=== PATIENT | male | born 1935 | race Caucasian/White ===

== ENCOUNTER 2017-05-23 10:57 | Inpatient (IN) | payer MEDICARE, OTHER ==
[2017-05-23] MEDS: FUROSEMIDE 40 MG INJ IV (11:38)
[2017-05-23] MEDS: ASPIRIN 325 MG TAB PO (11:38)
[2017-05-23] MEDS: NITROGLYCERIN 2% 1 GM OINT PKT TD (11:38)
[2017-05-23 11:52] LABS: ADD MAN DIFF? NO
[2017-05-23 11:53] LABS: BASOPHILS % 0.6 % (0.0-2.0); EOSINOPHILS # 0.3 10^3/ul (0.0-0.5); EOSINOPHILS % 4.5 % (0.0-7.0); HEMATOCRIT 32.7 % (42.0-52.0); HEMOGLOBIN 10.8 g/dl (14.0-18.0); LYMPHOCYTES # 1.1 10^3/ul (0.8-2.9); LYMPHOCYTES % 17.8 % (15.0-51.0); MEAN CORPUSCULAR HEMOGLOBIN 32.6 pg (29.0-33.0); MEAN CORPUSCULAR VOLUME 98.8 fl (82.0-101.0); MEAN PLATELET VOLUME 11.7 fl (7.4-10.4); MONOCYTE # 0.6 10^3/ul (0.3-0.9); MONOCYTES % 9.9 % (0.0-11.0); NEUTROPHIL # 4.1 10^3/ul (1.6-7.5); NEUTROPHILS % 66.9 % (39.0-77.0); PLATELET COUNT 101 10^3/UL (140-415); RED BLOOD COUNT 3.31 10^6/ul (4.70-6.10); RED CELL DISTRIBUTION WIDTH 14.4 % (11.5-14.5)
[2017-05-23 11:53] LABS: WHITE BLOOD COUNT 6.2 10^3/ul (4.8-10.8)
[2017-05-23 12:13] LABS: INR 1.65; PROTIME 19.9 Sec (11.9-14.9); PT RATIO 1.6
[2017-05-23 12:14] LABS: ALANINE AMINOTRANSFERASE 38 IU/L (13-69); ALBUMIN 3.4 g/dl (3.3-4.9); ALBUMIN/GLOBULIN RATIO 1.17; ALKALINE PHOSPHATASE 73 IU/L (42-121); ANION GAP 13 (8-16); ASPARTATE AMINO TRANSFERASE 30 IU/L (15-46); BLOOD UREA NITROGEN 20 mg/dl (7-20); CALCIUM 8.8 mg/dl (8.4-10.2); CARBON DIOXIDE 30 mmol/L (21-31); CHLORIDE 104 mmol/L (97-110); CREATININE 1.05 mg/dl (0.61-1.24); GLUCOSE 104 mg/dl (70-220); SODIUM 143 mmol/L (135-144); TOTAL PROTEIN 6.3 g/dl (6.1-8.1)
[2017-05-23 12:25] LABS: B-TYPE NATRIURETIC PEPTIDE 13000 PG/ML (0-450); TROPONIN-I 0.015 ng/ml (0.00-0.12)
[2017-05-23 12:32] LABS: PARTIAL THROMBOPLASTIN TIME 73.1 Sec (25.0-35.0)
[2017-05-23] MEDS ORDERED: ONDANSETRON 4 MG INJ IV (14:00)
[2017-05-23] MEDS ORDERED: ACETAMINOPHEN 325 MG TAB PO (14:00)
[2017-05-23 17:38] LABS: MAGNESIUM 1.8 mg/dl (1.7-2.5)
[2017-05-23 17:39] LABS: CREATINE KINASE 68 IU/L (23-200)
[2017-05-23] MEDS: FUROSEMIDE 20 MG INJ IV (17:49)
[2017-05-23 17:51] LABS: CK INDEX 2.4; CK-MB 1.64 ng/ml (0.0-2.4); TROPONIN-I 0.015 ng/ml (0.00-0.12)
[2017-05-23 18:12] LABS: ADD UMIC NO; UR ASCORBIC ACID NEGATIVE (NEGATIVE); UR BILIRUBIN (Dip) NEGATIVE (NEGATIVE); UR BLOOD (Dip) NEGATIVE (NEGATIVE); UR CLARITY CLEAR (CLEAR); UR COLOR STRAW (YELLOW); UR GLUCOSE (Dip) NEGATIVE (NEGATIVE); UR KETONES (Dip) NEGATIVE (NEGATIVE); UR LEUKOCYTE ESTERASE (Dip) NEGATIVE Leu/ul (NEGATIVE); UR NITRITE (Dip) NEGATIVE (NEGATIVE); UR SPECIFIC GRAVITY (Dip) 1.006 (1.003-1.030); UR TOTAL PROTEIN (Dip) NEGATIVE (NEGATIVE); UR UROBILINOGEN (Dip) NEGATIVE (NEGATIVE)
[2017-05-23 18:38] LABS: DIGOXIN < 0.4 ng/ml (1.0-2.0)
[2017-05-23] MEDS: DABIGATRAN 150 MG CAP PO (21:50)
[2017-05-23] MEDS: FERROUS SULFATE (EC) 325 MG TAB PO (21:51)
[2017-05-23 23:33] LABS: CREATINE KINASE 64 IU/L (23-200)
[2017-05-23 23:47] LABS: CK INDEX 2.4; TROPONIN-I 0.022 ng/ml (0.00-0.12)
[2017-05-23 23:49] LABS: CK-MB 1.53 ng/ml (0.0-2.4)
[2017-05-24] MEDS: ZOLPIDEM 5 MG TAB PO ×2 (00:28→22:26)
[2017-05-24 05:26] LABS: ADD MAN DIFF? NO
[2017-05-24 05:31] LABS: WHITE BLOOD COUNT 5.9 10^3/ul (4.8-10.8)
[2017-05-24 05:31] LABS: BASOPHILS % 0.7 % (0.0-2.0); EOSINOPHILS # 0.5 10^3/ul (0.0-0.5); EOSINOPHILS % 7.6 % (0.0-7.0); HEMOGLOBIN 11.4 g/dl (14.0-18.0); LYMPHOCYTES % 16.9 % (15.0-51.0); MEAN CORPUSCULAR HEMOGLOBIN 33.5 pg (29.0-33.0); MEAN CORPUSCULAR HGB CONC 34.5 g/dl (32.0-37.0); MEAN CORPUSCULAR VOLUME 97.1 fl (82.0-101.0); MEAN PLATELET VOLUME 12.1 fl (7.4-10.4); MONOCYTE # 0.7 10^3/ul (0.3-0.9); NEUTROPHIL # 3.8 10^3/ul (1.6-7.5); NEUTROPHILS % 63.5 % (39.0-77.0); PLATELET COUNT 113 10^3/UL (140-415); RED CELL DISTRIBUTION WIDTH 13.9 % (11.5-14.5)
[2017-05-24 05:53] LABS: IRON 116 ug/dl (35-150)
[2017-05-24 06:04] LABS: % IRON SATURATION 32 % SAT (22-52); ANION GAP 11 (8-16); BLOOD UREA NITROGEN 20 mg/dl (7-20); CALCIUM 8.7 mg/dl (8.4-10.2); CARBON DIOXIDE 33 mmol/L (21-31); CHLORIDE 101 mmol/L (97-110); CREATININE 1.01 mg/dl (0.61-1.24); GLUCOSE 99 mg/dl (70-220); MAGNESIUM 1.9 mg/dl (1.7-2.5); PHOSPHORUS 4.3 mg/dl (2.5-4.9); POTASSIUM 3.6 mmol/L (3.5-5.1); SODIUM 141 mmol/L (135-144); TOTAL IRON BINDING CAPACITY 367 ug/dl (241-421)
[2017-05-24] MEDS: FUROSEMIDE 20 MG INJ IV ×2 (06:17→17:20)
[2017-05-24] MEDS: LEVOTHYROXINE 25 MCG TAB PO (09:50)
[2017-05-24] MEDS: FERROUS SULFATE (EC) 325 MG TAB PO ×2 (09:50→21:28)
[2017-05-24] MEDS: DIGOXIN 0.25 MG TAB PO (09:51)
[2017-05-24] MEDS: DABIGATRAN 150 MG CAP PO ×2 (09:51→21:28)
[2017-05-24] MEDS: ALLOPURINOL 300 MG TAB PO (09:51)
[2017-05-24] MEDS: LISINOPRIL 5 MG TAB PO (09:51)
[2017-05-25] MEDS: ACETAMINOPHEN 325 MG TAB PO (00:56)
[2017-05-25] MEDS ORDERED: morphine 2 MG INJ IV (01:00)
[2017-05-25] MEDS: FUROSEMIDE 20 MG INJ IV ×2 (05:13→19:23)
[2017-05-25 05:41] LABS: ADD MAN DIFF? NO
[2017-05-25 06:06] LABS: BASOPHIL # 0.1 10^3/ul (0.0-0.1); BASOPHILS % 0.8 % (0.0-2.0); EOSINOPHILS # 0.4 10^3/ul (0.0-0.5); EOSINOPHILS % 6.8 % (0.0-7.0); HEMATOCRIT 33.8 % (42.0-52.0); HEMOGLOBIN 11.7 g/dl (14.0-18.0); LYMPHOCYTES # 1.1 10^3/ul (0.8-2.9); LYMPHOCYTES % 16.5 % (15.0-51.0); MEAN CORPUSCULAR HEMOGLOBIN 33.5 pg (29.0-33.0); MEAN CORPUSCULAR HGB CONC 34.6 g/dl (32.0-37.0); MEAN CORPUSCULAR VOLUME 96.8 fl (82.0-101.0); MEAN PLATELET VOLUME 11.4 fl (7.4-10.4); MONOCYTE # 0.7 10^3/ul (0.3-0.9); MONOCYTES % 11.4 % (0.0-11.0); NEUTROPHIL # 4.2 10^3/ul (1.6-7.5); NEUTROPHILS % 64.2 % (39.0-77.0); PLATELET COUNT 128 10^3/UL (140-415); RED BLOOD COUNT 3.49 10^6/ul (4.70-6.10); RED CELL DISTRIBUTION WIDTH 13.8 % (11.5-14.5)
[2017-05-25 06:06] LABS: WHITE BLOOD COUNT 6.5 10^3/ul (4.8-10.8)
[2017-05-25 06:18] LABS: ANION GAP 10 (8-16); BLOOD UREA NITROGEN 22 mg/dl (7-20); CALCIUM 8.6 mg/dl (8.4-10.2); CARBON DIOXIDE 34 mmol/L (21-31); CHLORIDE 99 mmol/L (97-110); CREATININE 1.06 mg/dl (0.61-1.24); GLUCOSE 102 mg/dl (70-220); SODIUM 139 mmol/L (135-144)
[2017-05-25] MEDS: LEVOTHYROXINE 25 MCG TAB PO (06:53)
[2017-05-25] MEDS: DIGOXIN 0.25 MG TAB PO (09:41)
[2017-05-25] MEDS: ALLOPURINOL 300 MG TAB PO (09:41)
[2017-05-25] MEDS: DABIGATRAN 150 MG CAP PO ×2 (09:41→20:52)
[2017-05-25] MEDS: FERROUS SULFATE (EC) 325 MG TAB PO ×2 (09:42→20:52)
[2017-05-25] MEDS: LISINOPRIL 5 MG TAB PO (09:42)
[2017-05-25] MEDS: FAMOTIDINE 20 MG TAB PO (13:39)
[2017-05-25] MEDS: ZOLPIDEM 5 MG TAB PO (22:19)
[2017-05-26 05:21] LABS: ADD MAN DIFF? NO
[2017-05-26 05:31] LABS: WHITE BLOOD COUNT 6.4 10^3/ul (4.8-10.8)
[2017-05-26 05:31] LABS: BASOPHIL # 0.1 10^3/ul (0.0-0.1); BASOPHILS % 0.8 % (0.0-2.0); EOSINOPHILS # 0.5 10^3/ul (0.0-0.5); EOSINOPHILS % 7.3 % (0.0-7.0); HEMATOCRIT 36.9 % (42.0-52.0); HEMOGLOBIN 12.7 g/dl (14.0-18.0); LYMPHOCYTES # 1.4 10^3/ul (0.8-2.9); LYMPHOCYTES % 22.3 % (15.0-51.0); MEAN CORPUSCULAR HEMOGLOBIN 33.1 pg (29.0-33.0); MEAN CORPUSCULAR HGB CONC 34.4 g/dl (32.0-37.0); MEAN CORPUSCULAR VOLUME 96.1 fl (82.0-101.0); MEAN PLATELET VOLUME 11.6 fl (7.4-10.4); MONOCYTE # 0.7 10^3/ul (0.3-0.9); MONOCYTES % 10.9 % (0.0-11.0); NEUTROPHIL # 3.8 10^3/ul (1.6-7.5); NEUTROPHILS % 58.4 % (39.0-77.0); PLATELET COUNT 133 10^3/UL (140-415); POSITIVE DIFF @See below; RED BLOOD COUNT 3.84 10^6/ul (4.70-6.10); RED CELL DISTRIBUTION WIDTH 13.8 % (11.5-14.5)
[2017-05-26 06:11] LABS: ANION GAP 11 (8-16); BLOOD UREA NITROGEN 21 mg/dl (7-20); CARBON DIOXIDE 32 mmol/L (21-31); CHLORIDE 101 mmol/L (97-110); CREATININE 0.95 mg/dl (0.61-1.24); GLUCOSE 95 mg/dl (70-220); SODIUM 140 mmol/L (135-144)
[2017-05-26] MEDS: LEVOTHYROXINE 25 MCG TAB PO (06:32)
[2017-05-26] MEDS: FUROSEMIDE 20 MG INJ IV ×2 (06:34→17:22)
[2017-05-26 07:34] LABS: CALCIUM 8.6 mg/dl (8.4-10.2)
[2017-05-26] MEDS: FERROUS SULFATE (EC) 325 MG TAB PO (08:08)
[2017-05-26] MEDS: SPIRONOLACTONE 25 MG TAB PO (08:08)
[2017-05-26] MEDS: DABIGATRAN 150 MG CAP PO (08:08)
[2017-05-26] MEDS: ALLOPURINOL 300 MG TAB PO (08:09)
[2017-05-26] MEDS: LISINOPRIL 5 MG TAB PO (08:09)
[2017-05-26] MEDS: DIGOXIN 0.25 MG TAB PO (08:09)
[2017-05-26] MEDS: ACETAMINOPHEN 325 MG TAB PO (11:20)
== END 2017-05-26 20:40 | disposition home or self-care (01) | DRG 293 ==
LOC: E/R 10:57 → MS3 13:47
DX: I11.0 Hypertensive heart disease with heart failure (principal); I48.2 Chronic atrial fibrillation; I34.0 Nonrheumatic mitral (valve) insufficiency; I36.1 Nonrheumatic tricuspid (valve) insufficiency; E03.9 Hypothyroidism, unspecified; Z95.0 Presence of cardiac pacemaker; I50.43 Acute on chronic combined systolic (congestive) and diastolic (congestive) heart failure; F17.200 Nicotine dependence, unspecified, uncomplicated; I25.5 Ischemic cardiomyopathy; M10.9 Gout, unspecified
CPT/HCPCS: 36415; 71045; 80048; 80053; 80162; 81003; 82550; 82553; 83540; 83735; 83880; 84100; 84443; 84484; 85025; 85610; 85730; 87040; 93005; 96374; 99285-25; J1940

== ENCOUNTER 2018-03-28 11:11 | Inpatient (IN) | payer MEDICARE, OTHER ==
[2018-03-28 11:47] LABS: ADD MAN DIFF? NO
[2018-03-28 11:49] LABS: WHITE BLOOD COUNT 6.8 10^3/ul (4.8-10.8)
[2018-03-28 11:49] LABS: BASOPHILS % 0.6 % (0.0-2.0); EOSINOPHILS # 0.1 10^3/ul (0.0-0.5); HEMATOCRIT 41.3 % (42.0-52.0); LYMPHOCYTES # 1.2 10^3/ul (0.8-2.9); LYMPHOCYTES % 17.1 % (15.0-51.0); MEAN CORPUSCULAR HEMOGLOBIN 31.4 pg (29.0-33.0); MEAN CORPUSCULAR HGB CONC 33.9 g/dl (32.0-37.0); MEAN CORPUSCULAR VOLUME 92.6 fl (82.0-101.0); MEAN PLATELET VOLUME 10.5 fl (7.4-10.4); MONOCYTE # 0.5 10^3/ul (0.3-0.9); MONOCYTES % 6.6 % (0.0-11.0); NEUTROPHIL # 5.1 10^3/ul (1.6-7.5); NEUTROPHILS % 74.3 % (39.0-77.0); PLATELET COUNT 136 10^3/UL (140-415); POSITIVE DIFF @See below; RED BLOOD COUNT 4.46 10^6/ul (4.70-6.10); RED CELL DISTRIBUTION WIDTH 13.7 % (11.5-14.5)
[2018-03-28 12:11] LABS: ALANINE AMINOTRANSFERASE < 6 IU/L (13-69); ALBUMIN 4.2 g/dl (3.3-4.9); ALBUMIN/GLOBULIN RATIO 1.31; ALKALINE PHOSPHATASE 69 IU/L (42-121); ANION GAP 11 (5-13); ASPARTATE AMINO TRANSFERASE 30 IU/L (15-46); BILIRUBIN,INDIRECT 0.8 mg/dl (0-1.1); BILIRUBIN,TOTAL 0.8 mg/dl (0.2-1.3); BLOOD UREA NITROGEN 13 mg/dl (7-20); CALCIUM 9.2 mg/dl (8.4-10.2); CARBON DIOXIDE 23 mmol/L (21-31); CHLORIDE 105 mmol/L (97-110); CREATININE 0.98 mg/dl (0.61-1.24); ETHANOL < 10.0 mg/dl (0-0); GLUCOSE 110 mg/dl (70-220); POTASSIUM 4.7 mmol/L (3.5-5.1); SODIUM 139 mmol/L (135-144); TOTAL PROTEIN 7.4 g/dl (6.1-8.1)
[2018-03-28 12:23] LABS: INR 1.05; PT RATIO 1.1; TROPONIN-I 0.021 ng/ml (0.000-0.120)
[2018-03-28 12:27] LABS: ADD UMIC YES; UR ASCORBIC ACID NEGATIVE (NEGATIVE); UR BACTERIA FEW /HPF (NONE SEEN); UR BILIRUBIN (Dip) NEGATIVE (NEGATIVE); UR BLOOD (Dip) 1+ mg/dL (NEGATIVE); UR CLARITY SLIGHTLY CLOUDY (CLEAR); UR COLOR YELLOW (YELLOW); UR GLUCOSE (Dip) NEGATIVE (NEGATIVE); UR KETONES (Dip) 1+ mg/dL (NEGATIVE); UR LEUKOCYTE ESTERASE (Dip) TRACE Leu/ul (NEGATIVE); UR MUCUS FEW /HPF (NONE SEEN); UR NITRITE (Dip) POSITIVE (NEGATIVE); UR RBC 2 /HPF (0-5); UR SQUAMOUS EPITHELIAL CELL FEW /HPF (FEW); UR TOTAL PROTEIN (Dip) 1+ mg/dl (NEGATIVE); UR UROBILINOGEN (Dip) 2+ mg/dL (NEGATIVE); UR WBC 17 /HPF (0-5)
[2018-03-28 12:57] LABS: PROTIME 13.8 Sec (11.9-14.9)
[2018-03-28 12:59] LABS: DIGOXIN < 0.4 ng/ml (1.0-2.0)
[2018-03-28 13:51] LABS: FREE THYROXINE INDEX (Calc) 2.38 ug/ml (0.65-3.89)
[2018-03-28] MEDS: CEFTRIAXONE 1 GM/50 ML (PMX) 50 ML IVPB (13:53)
[2018-03-28 13:55] LABS: T3 UPTAKE 39.7 % (23.5-40.5)
[2018-03-28] MEDS ORDERED: ONDANSETRON 4 MG INJ IV ×2 (14:00→18:30)
[2018-03-28] MEDS: ACETAMINOPHEN 325 MG TAB PO (18:12)
[2018-03-28] MEDS ORDERED: ONDANSETRON (ODT) 4 MG TAB ODT (18:29)
[2018-03-28] MEDS ORDERED: ACETAMINOPHEN 325 MG TAB PO (18:30)
[2018-03-28] MEDS ORDERED: HYDROCODONE/APAP (5/325) TAB PO (18:30)
[2018-03-28] MEDS ORDERED: NACL 0.9% 3 ML SYG IV (18:30)
[2018-03-28] MEDS ORDERED: ZOLPIDEM 5 MG TAB PO (18:30)
[2018-03-28] MEDS ORDERED: morphine LIQ (10 MG/5 ML) CUP PO (21:02)
[2018-03-28] MEDS: ATORVASTATIN 80 MG TAB PO (21:20)
[2018-03-28] MEDS: SOD CHLORIDE 0.9% 1,000 ML IV (21:20)
[2018-03-28] MEDS: FUROSEMIDE 40 MG TAB PO (21:21)
[2018-03-28] MEDS: DABIGATRAN 150 MG CAP PO (22:54)
[2018-03-29] MEDS ORDERED: ATROPINE 1 MG/10 ML SYRINGE (01:09)
[2018-03-29] MEDS: FUROSEMIDE 40 MG TAB PO ×2 (05:54→17:32)
[2018-03-29] MEDS: LEVOTHYROXINE 25 MCG TAB PO (06:02)
[2018-03-29 06:26] LABS: ADD MAN DIFF? NO
[2018-03-29] MEDS: SOD CHLORIDE 0.9% 1,000 ML IV ×2 (06:33→16:01)
[2018-03-29 06:34] LABS: BASOPHILS % 0.6 % (0.0-2.0); EOSINOPHILS # 0.5 10^3/ul (0.0-0.5); EOSINOPHILS % 7.3 % (0.0-7.0); HEMATOCRIT 38.1 % (42.0-52.0); HEMOGLOBIN 13.1 g/dl (14.0-18.0); LYMPHOCYTES # 1.3 10^3/ul (0.8-2.9); LYMPHOCYTES % 20.2 % (15.0-51.0); MEAN CORPUSCULAR HEMOGLOBIN 31.6 pg (29.0-33.0); MEAN CORPUSCULAR HGB CONC 34.4 g/dl (32.0-37.0); MEAN PLATELET VOLUME 10.7 fl (7.4-10.4); MONOCYTE # 0.5 10^3/ul (0.3-0.9); MONOCYTES % 7.6 % (0.0-11.0); NEUTROPHIL # 4.1 10^3/ul (1.6-7.5); NEUTROPHILS % 63.8 % (39.0-77.0); PLATELET COUNT 124 10^3/UL (140-415); POSITIVE DIFF @See below; RED BLOOD COUNT 4.14 10^6/ul (4.70-6.10); RED CELL DISTRIBUTION WIDTH 13.6 % (11.5-14.5)
[2018-03-29 06:34] LABS: WHITE BLOOD COUNT 6.5 10^3/ul (4.8-10.8)
[2018-03-29 07:05] LABS: HEMOGLOBIN A1C 5.2 % (0-5.9)
[2018-03-29 07:25] LABS: ANION GAP 11 (5-13); BLOOD UREA NITROGEN 11 mg/dl (7-20); CALCIUM 8.8 mg/dl (8.4-10.2); CARBON DIOXIDE 26 mmol/L (21-31); CHLORIDE 105 mmol/L (97-110); CREATININE 0.87 mg/dl (0.61-1.24); GLUCOSE 96 mg/dl (70-220); MAGNESIUM 1.9 mg/dl (1.7-2.5); PHOSPHORUS 3.1 mg/dl (2.5-4.9); SODIUM 142 mmol/L (135-144)
[2018-03-29] MEDS: DABIGATRAN 150 MG CAP PO ×2 (09:24→20:19)
[2018-03-29] MEDS: SPIRONOLACTONE 25 MG TAB PO (09:25)
[2018-03-29] MEDS: POTASSIUM CHLORIDE (SR) 20 MEQ TAB PO (09:25)
[2018-03-29] MEDS: ALLOPURINOL 300 MG TAB PO (09:25)
[2018-03-29] MEDS: LISINOPRIL 5 MG TAB PO (09:25)
[2018-03-29] MEDS: CEFTRIAXONE 1 GM/50 ML (PMX) 50 ML IVPB (13:37)
[2018-03-29] MEDS: DIGOXIN 0.25 MG TAB PO (13:37)
[2018-03-29] MEDS ORDERED: VANCOMYCIN IV PER PHARMACY XX (14:00)
[2018-03-29 15:17] LABS: CHOLESTEROL 133 mg/dl (100-200)
[2018-03-29 15:17] LABS: HDL CHOLESTEROL 22 mg/dl (31-75); LDL CHOLESTEROL,CALCULATED 94 mg/dl; TRIGLYCERIDES 84 mg/dl (0-149)
[2018-03-29] MEDS: VANCOMYCIN 1.5 GM in SOD CHLORIDE 0.9% 250 ML IVPB (16:06)
[2018-03-29] MEDS: PIPER-TAZO 3.375 GM IV (PMX) 100 ML IVPB ×2 (17:33→23:20)
[2018-03-29] MEDS: IOHEXOL 100 ML (17:47)
[2018-03-29] MEDS: SOD CHLORIDE 0.9% 100 ML (17:47)
[2018-03-29] MEDS: ATORVASTATIN 80 MG TAB PO (20:18)
[2018-03-30] MEDS: SOD CHLORIDE 0.9% 1,000 ML IV ×2 (03:00→12:42)
[2018-03-30] MEDS: FUROSEMIDE 40 MG TAB PO ×2 (05:03→17:11)
[2018-03-30] MEDS: PIPER-TAZO 3.375 GM IV (PMX) 100 ML IVPB ×4 (05:06→23:22)
[2018-03-30] MEDS: LEVOTHYROXINE 25 MCG TAB PO (06:08)
[2018-03-30] MEDS: DABIGATRAN 150 MG CAP PO ×2 (08:13→20:39)
[2018-03-30] MEDS: SPIRONOLACTONE 25 MG TAB PO (08:14)
[2018-03-30] MEDS: ALLOPURINOL 300 MG TAB PO (08:14)
[2018-03-30] MEDS: POTASSIUM CHLORIDE (SR) 20 MEQ TAB PO (08:14)
[2018-03-30] MEDS: LISINOPRIL 5 MG TAB PO (08:14)
[2018-03-30] MEDS: DIGOXIN 0.25 MG TAB PO (12:42)
[2018-03-30] MEDS: VANCOMYCIN 1.25 GM in SOD CHLORIDE 0.9% 250 ML IVPB (15:52)
[2018-03-30] MEDS: ATORVASTATIN 80 MG TAB PO (20:39)
[2018-03-30 21:39] LABS: RAPID PLASMA REAGIN NONREACTIVE (NR)
[2018-03-31] MEDS: PIPER-TAZO 3.375 GM IV (PMX) 100 ML IVPB ×2 (05:26→11:54)
[2018-03-31 06:35] LABS: BLOOD UREA NITROGEN 13 mg/dl (7-20)
[2018-03-31 06:35] LABS: CREATININE 1.08 mg/dl (0.61-1.24)
[2018-03-31] MEDS: LEVOTHYROXINE 25 MCG TAB PO (06:35)
[2018-03-31] MEDS: FUROSEMIDE 40 MG TAB PO ×2 (06:35→17:51)
[2018-03-31] MEDS: DABIGATRAN 150 MG CAP PO (08:49)
[2018-03-31] MEDS: LISINOPRIL 5 MG TAB PO (08:50)
[2018-03-31] MEDS: POTASSIUM CHLORIDE (SR) 20 MEQ TAB PO (08:50)
[2018-03-31] MEDS: SPIRONOLACTONE 25 MG TAB PO (08:51)
[2018-03-31] MEDS: ALLOPURINOL 300 MG TAB PO (08:51)
[2018-03-31] MEDS: DIGOXIN 0.25 MG TAB PO (13:30)
[2018-03-31] MEDS: VANCOMYCIN 1.25 GM in SOD CHLORIDE 0.9% 250 ML IVPB (15:52)
[2018-03-31] MEDS ORDERED: TOBRAMYCIN IV PER PHARMACY XX (17:00)
[2018-03-31] MEDS ORDERED: TOBRAMYCIN 300 MG in DEXTROSE 5% 100 ML IVPB (20:00)
== END 2018-03-31 18:44 | DRG 64 ==
LOC: E/R 11:11 → TEL 13:51
PROVIDERS: Internal Medicine
DX: I63.332 Cerebral infarction due to thrombosis of left posterior cerebral artery (principal); A41.1 Sepsis due to other specified staphylococcus; G93.41 Metabolic encephalopathy; I50.22 Chronic systolic (congestive) heart failure; N39.0 Urinary tract infection, site not specified; I11.0 Hypertensive heart disease with heart failure; I25.5 Ischemic cardiomyopathy; I48.2 Chronic atrial fibrillation; E03.9 Hypothyroidism, unspecified; M10.9 Gout, unspecified; I25.10 Atherosclerotic heart disease of native coronary artery without angina pectoris; Z95.810 Presence of automatic (implantable) cardiac defibrillator; I35.0 Nonrheumatic aortic (valve) stenosis; Z79.01 Long term (current) use of anticoagulants
CPT/HCPCS: 36415; 70450; 70496; 70498; 71045; 80048; 80053; 80061; 80162; 80307; 81001; 82565; 82962; 83036; 83735; 84100; 84436; 84479; 84484; 84520; 85025; 85610; 85730; 86592; 87040; 87081; 87086; 92507; 92523; 92610; 93005; 93306; 97116; 97161; 97167; 97535; 99285-25

== ENCOUNTER 2018-03-31 18:59 | Inpatient (IN) | payer MEDICARE, OTHER ==
[2018-03-31] MEDS ORDERED: BISACODYL 10 MG SUPP PR (20:30)
[2018-03-31] MEDS ORDERED: MAGNESIUM HYDROXIDE 30ML CUP PO (20:30)
[2018-03-31] MEDS ORDERED: ACETAMINOPHEN 325 MG TAB PO (20:30)
[2018-03-31] MEDS ORDERED: LACTULOSE 30ML CUP PO (20:30)
[2018-03-31] MEDS ORDERED: DOCUSATE SODIUM 100 MG CAP PO (21:00)
[2018-03-31] MEDS ORDERED: SENNA TAB PO (21:00)
[2018-03-31] MEDS ORDERED: ONDANSETRON 4 MG INJ IV (22:00)
[2018-03-31] MEDS ORDERED: morphine LIQ (10 MG/5 ML) CUP PO (22:00)
[2018-03-31] MEDS ORDERED: HYDROCODONE/APAP (5/325) TAB PO (22:00)
[2018-03-31] MEDS ORDERED: TOBRAMYCIN IV PER PHARMACY XX (23:00)
[2018-04-01] MEDS: ATORVASTATIN 80 MG TAB PO ×2 (00:18→20:59)
[2018-04-01] MEDS: DABIGATRAN 150 MG CAP PO ×3 (00:19→20:58)
[2018-04-01] MEDS: TOBRAMYCIN 300 MG in DEXTROSE 5% 100 ML IVPB (00:22)
[2018-04-01 04:10] LABS: ADD UMIC YES; UR ASCORBIC ACID NEGATIVE (NEGATIVE); UR BILIRUBIN (Dip) NEGATIVE (NEGATIVE); UR BLOOD (Dip) 1+ mg/dL (NEGATIVE); UR CLARITY CLEAR (CLEAR); UR COLOR YELLOW (YELLOW); UR GLUCOSE (Dip) NEGATIVE (NEGATIVE); UR KETONES (Dip) NEGATIVE (NEGATIVE); UR LEUKOCYTE ESTERASE (Dip) NEGATIVE Leu/ul (NEGATIVE); UR NITRITE (Dip) NEGATIVE (NEGATIVE); UR RBC 2 /HPF (0-5); UR SPECIFIC GRAVITY (Dip) 1.012 (1.003-1.030); UR TOTAL PROTEIN (Dip) NEGATIVE (NEGATIVE); UR UROBILINOGEN (Dip) NEGATIVE (NEGATIVE); UR WBC 2 /HPF (0-5)
[2018-04-01] MEDS: FUROSEMIDE 20 MG TAB PO ×2 (06:06→17:21)
[2018-04-01] MEDS: LEVOTHYROXINE 25 MCG TAB PO ×2 (06:06→07:05)
[2018-04-01 07:00] LABS: ADD MAN DIFF? NO
[2018-04-01 07:20] LABS: BASOPHIL # 0.1 10^3/ul (0.0-0.1); BASOPHILS % 0.8 % (0.0-2.0); EOSINOPHILS # 0.8 10^3/ul (0.0-0.5); EOSINOPHILS % 10.3 % (0.0-7.0); HEMATOCRIT 41.3 % (42.0-52.0); HEMOGLOBIN 14.2 g/dl (14.0-18.0); LYMPHOCYTES # 1.4 10^3/ul (0.8-2.9); LYMPHOCYTES % 18.7 % (15.0-51.0); MEAN CORPUSCULAR HEMOGLOBIN 31.1 pg (29.0-33.0); MEAN CORPUSCULAR HGB CONC 34.4 g/dl (32.0-37.0); MEAN CORPUSCULAR VOLUME 90.6 fl (82.0-101.0); MEAN PLATELET VOLUME 11.4 fl (7.4-10.4); MONOCYTE # 0.6 10^3/ul (0.3-0.9); NEUTROPHIL # 4.7 10^3/ul (1.6-7.5); NEUTROPHILS % 61.9 % (39.0-77.0); PLATELET COUNT 129 10^3/UL (140-415); POSITIVE DIFF @See below; RED BLOOD COUNT 4.56 10^6/ul (4.70-6.10); RED CELL DISTRIBUTION WIDTH 13.2 % (11.5-14.5)
[2018-04-01 07:20] LABS: WHITE BLOOD COUNT 7.6 10^3/ul (4.8-10.8)
[2018-04-01 07:49] LABS: ALANINE AMINOTRANSFERASE 17 IU/L (13-69); ALBUMIN 3.9 g/dl (3.3-4.9); ALBUMIN/GLOBULIN RATIO 1.18; ALKALINE PHOSPHATASE 67 IU/L (42-121); ANION GAP 10 (5-13); ASPARTATE AMINO TRANSFERASE 27 IU/L (15-46); BILIRUBIN,INDIRECT 0.9 mg/dl (0-1.1); BILIRUBIN,TOTAL 0.9 mg/dl (0.2-1.3); BLOOD UREA NITROGEN 15 mg/dl (7-20); CALCIUM 9.1 mg/dl (8.4-10.2); CARBON DIOXIDE 29 mmol/L (21-31); CHLORIDE 101 mmol/L (97-110); CREATININE 1.11 mg/dl (0.61-1.24); GLUCOSE 96 mg/dl (70-220); POTASSIUM 3.9 mmol/L (3.5-5.1); SODIUM 140 mmol/L (135-144); TOTAL PROTEIN 7.2 g/dl (6.1-8.1)
[2018-04-01] MEDS: POTASSIUM CHLORIDE (SR) 20 MEQ TAB PO (08:31)
[2018-04-01] MEDS: ALLOPURINOL 300 MG TAB PO (08:31)
[2018-04-01] MEDS: LISINOPRIL 5 MG TAB PO (08:31)
[2018-04-01] MEDS: SPIRONOLACTONE 25 MG TAB PO (08:31)
[2018-04-01 12:04] LABS: TOBRAMYCIN, RANDOM 6.1 ug/ml
[2018-04-01] MEDS: DIGOXIN 0.25 MG TAB PO (13:00)
[2018-04-01] MEDS ORDERED: VANCOMYCIN 1.25 GM in SOD CHLORIDE 0.9% 250 ML IVPB (16:00)
[2018-04-01] MEDS: ZOLPIDEM 5 MG TAB PO (20:59)
[2018-04-02] MEDS: FUROSEMIDE 20 MG TAB PO ×2 (06:34→17:22)
[2018-04-02] MEDS: LEVOTHYROXINE 25 MCG TAB PO (06:34)
[2018-04-02] MEDS: LISINOPRIL 5 MG TAB PO (08:42)
[2018-04-02] MEDS: POTASSIUM CHLORIDE (SR) 20 MEQ TAB PO (08:42)
[2018-04-02] MEDS: SPIRONOLACTONE 25 MG TAB PO (08:42)
[2018-04-02] MEDS: DABIGATRAN 150 MG CAP PO ×2 (08:42→20:47)
[2018-04-02] MEDS: ALLOPURINOL 300 MG TAB PO (08:43)
[2018-04-02] MEDS: TOBRAMYCIN 300 MG in DEXTROSE 5% 100 ML IVPB (11:07)
[2018-04-02] MEDS: DIGOXIN 0.25 MG TAB PO (13:00)
[2018-04-02] MEDS: ATORVASTATIN 80 MG TAB PO (20:47)
[2018-04-03] MEDS: LEVOTHYROXINE 25 MCG TAB PO (05:58)
[2018-04-03] MEDS: FUROSEMIDE 20 MG TAB PO ×2 (05:58→17:35)
[2018-04-03] MEDS: LISINOPRIL 5 MG TAB PO (08:55)
[2018-04-03] MEDS: SPIRONOLACTONE 25 MG TAB PO (08:55)
[2018-04-03] MEDS: POTASSIUM CHLORIDE (SR) 20 MEQ TAB PO (08:55)
[2018-04-03] MEDS: DABIGATRAN 150 MG CAP PO ×2 (08:55→20:17)
[2018-04-03] MEDS: ALLOPURINOL 300 MG TAB PO (08:59)
[2018-04-03] MEDS: DIGOXIN 0.25 MG TAB PO (13:17)
[2018-04-03] MEDS: ATORVASTATIN 80 MG TAB PO (20:16)
[2018-04-04] MEDS: FUROSEMIDE 20 MG TAB PO ×2 (06:17→17:13)
[2018-04-04] MEDS: LEVOTHYROXINE 25 MCG TAB PO (06:17)
[2018-04-04] MEDS: DABIGATRAN 150 MG CAP PO ×2 (08:05→20:13)
[2018-04-04] MEDS: POTASSIUM CHLORIDE (SR) 20 MEQ TAB PO (08:05)
[2018-04-04] MEDS: ALLOPURINOL 300 MG TAB PO (08:05)
[2018-04-04] MEDS: LISINOPRIL 5 MG TAB PO (08:07)
[2018-04-04] MEDS: SPIRONOLACTONE 25 MG TAB PO (08:07)
[2018-04-04] MEDS: DIGOXIN 0.25 MG TAB PO (12:00)
[2018-04-04] MEDS: ATORVASTATIN 80 MG TAB PO (20:13)
[2018-04-05] MEDS: FUROSEMIDE 20 MG TAB PO ×2 (06:00→17:15)
[2018-04-05] MEDS: LEVOTHYROXINE 25 MCG TAB PO (06:24)
[2018-04-05] MEDS: SPIRONOLACTONE 25 MG TAB PO (07:37)
[2018-04-05] MEDS: ALLOPURINOL 300 MG TAB PO (07:37)
[2018-04-05] MEDS: POTASSIUM CHLORIDE (SR) 20 MEQ TAB PO (07:37)
[2018-04-05] MEDS: DABIGATRAN 150 MG CAP PO ×2 (07:38→20:09)
[2018-04-05] MEDS: LISINOPRIL 5 MG TAB PO (07:38)
[2018-04-05] MEDS: DIGOXIN 0.25 MG TAB PO ×2 (13:00→15:55)
[2018-04-05] MEDS: ATORVASTATIN 80 MG TAB PO (20:08)
[2018-04-06] MEDS: LEVOTHYROXINE 25 MCG TAB PO (06:37)
[2018-04-06] MEDS: FUROSEMIDE 20 MG TAB PO ×2 (06:38→18:27)
[2018-04-06] MEDS: DABIGATRAN 150 MG CAP PO ×2 (08:06→20:15)
[2018-04-06] MEDS: POTASSIUM CHLORIDE (SR) 20 MEQ TAB PO (08:07)
[2018-04-06] MEDS: ALLOPURINOL 300 MG TAB PO (08:07)
[2018-04-06] MEDS: LISINOPRIL 5 MG TAB PO (08:07)
[2018-04-06] MEDS: SPIRONOLACTONE 25 MG TAB PO (08:07)
[2018-04-06] MEDS: DIGOXIN 0.25 MG TAB PO (12:49)
[2018-04-06] MEDS: ATORVASTATIN 80 MG TAB PO (20:15)
[2018-04-07] MEDS: LEVOTHYROXINE 25 MCG TAB PO (06:24)
[2018-04-07] MEDS: FUROSEMIDE 20 MG TAB PO ×2 (06:24→18:34)
[2018-04-07] MEDS: SPIRONOLACTONE 25 MG TAB PO (08:13)
[2018-04-07] MEDS: POTASSIUM CHLORIDE (SR) 20 MEQ TAB PO (08:13)
[2018-04-07] MEDS: ALLOPURINOL 300 MG TAB PO (08:13)
[2018-04-07] MEDS: DABIGATRAN 150 MG CAP PO ×2 (08:13→20:35)
[2018-04-07] MEDS: LISINOPRIL 5 MG TAB PO (08:14)
[2018-04-07] MEDS: DIGOXIN 0.25 MG TAB PO (13:00)
[2018-04-07] MEDS: ATORVASTATIN 80 MG TAB PO (20:35)
[2018-04-08] MEDS: LEVOTHYROXINE 25 MCG TAB PO (06:22)
[2018-04-08] MEDS: FUROSEMIDE 20 MG TAB PO ×2 (06:22→17:07)
[2018-04-08] MEDS: DABIGATRAN 150 MG CAP PO ×2 (09:16→20:51)
[2018-04-08] MEDS: ALLOPURINOL 300 MG TAB PO (09:16)
[2018-04-08] MEDS: POTASSIUM CHLORIDE (SR) 20 MEQ TAB PO (13:48)
[2018-04-08] MEDS: SPIRONOLACTONE 25 MG TAB PO (13:48)
[2018-04-08] MEDS: LISINOPRIL 5 MG TAB PO (13:49)
[2018-04-08] MEDS: DIGOXIN 0.25 MG TAB PO (13:49)
[2018-04-08] MEDS: ATORVASTATIN 80 MG TAB PO (20:51)
[2018-04-09] MEDS: LEVOTHYROXINE 25 MCG TAB PO (06:15)
[2018-04-09] MEDS: FUROSEMIDE 20 MG TAB PO ×2 (06:15→18:21)
[2018-04-09] MEDS: POTASSIUM CHLORIDE (SR) 20 MEQ TAB PO (08:39)
[2018-04-09] MEDS: SPIRONOLACTONE 25 MG TAB PO (08:39)
[2018-04-09] MEDS: DABIGATRAN 150 MG CAP PO ×2 (08:39→20:33)
[2018-04-09] MEDS: ALLOPURINOL 300 MG TAB PO (08:40)
[2018-04-09] MEDS: LISINOPRIL 5 MG TAB PO (08:40)
[2018-04-09] MEDS: DIGOXIN 0.25 MG TAB PO (12:40)
[2018-04-09] MEDS: ATORVASTATIN 80 MG TAB PO (20:33)
[2018-04-10] MEDS: LEVOTHYROXINE 25 MCG TAB PO (06:34)
[2018-04-10] MEDS: FUROSEMIDE 20 MG TAB PO ×2 (06:34→18:00)
[2018-04-10 07:06] LABS: ADD MAN DIFF? NO
[2018-04-10 07:09] LABS: BASOPHIL # 0.1 10^3/ul (0.0-0.1); BASOPHILS % 0.8 % (0.0-2.0); EOSINOPHILS # 0.5 10^3/ul (0.0-0.5); HEMATOCRIT 40.8 % (42.0-52.0); HEMOGLOBIN 13.9 g/dl (14.0-18.0); LYMPHOCYTES # 1.6 10^3/ul (0.8-2.9); LYMPHOCYTES % 21.2 % (15.0-51.0); MEAN CORPUSCULAR HGB CONC 34.1 g/dl (32.0-37.0); MEAN CORPUSCULAR VOLUME 91.1 fl (82.0-101.0); MEAN PLATELET VOLUME 11.5 fl (7.4-10.4); MONOCYTE # 0.8 10^3/ul (0.3-0.9); MONOCYTES % 10.6 % (0.0-11.0); NEUTROPHIL # 4.5 10^3/ul (1.6-7.5); NEUTROPHILS % 60.1 % (39.0-77.0); PLATELET COUNT 130 10^3/UL (140-415); POSITIVE DIFF @See below; RED BLOOD COUNT 4.48 10^6/ul (4.70-6.10); RED CELL DISTRIBUTION WIDTH 12.9 % (11.5-14.5)
[2018-04-10 07:09] LABS: WHITE BLOOD COUNT 7.4 10^3/ul (4.8-10.8)
[2018-04-10 07:30] LABS: ALANINE AMINOTRANSFERASE 19 IU/L (13-69); ALBUMIN 3.8 g/dl (3.3-4.9); ALBUMIN/GLOBULIN RATIO 1.05; ALKALINE PHOSPHATASE 81 IU/L (42-121); ANION GAP 8 (5-13); ASPARTATE AMINO TRANSFERASE 31 IU/L (15-46); BILIRUBIN,INDIRECT 0.5 mg/dl (0-1.1); BILIRUBIN,TOTAL 0.5 mg/dl (0.2-1.3); BLOOD UREA NITROGEN 21 mg/dl (7-20); CALCIUM 9.2 mg/dl (8.4-10.2); CARBON DIOXIDE 32 mmol/L (21-31); CHLORIDE 98 mmol/L (97-110); CREATININE 1.04 mg/dl (0.61-1.24); GLUCOSE 107 mg/dl (70-220); POTASSIUM 4.6 mmol/L (3.5-5.1); SODIUM 138 mmol/L (135-144); TOTAL PROTEIN 7.4 g/dl (6.1-8.1)
[2018-04-10 07:36] LABS: DIGOXIN 0.8 ng/ml (1.0-2.0)
[2018-04-10 07:50] LABS: FREE T4 (FREE THYROXINE) 0.94 ng/dl (0.85-1.93)
[2018-04-10] MEDS: ALLOPURINOL 300 MG TAB PO (08:04)
[2018-04-10] MEDS: DABIGATRAN 150 MG CAP PO ×2 (08:05→19:55)
[2018-04-10] MEDS: SPIRONOLACTONE 25 MG TAB PO (08:05)
[2018-04-10] MEDS: LISINOPRIL 5 MG TAB PO (08:06)
[2018-04-10] MEDS: POTASSIUM CHLORIDE (SR) 20 MEQ TAB PO (08:06)
[2018-04-10] MEDS: DIGOXIN 0.25 MG TAB PO (14:55)
[2018-04-10] MEDS: ATORVASTATIN 80 MG TAB PO (19:55)
[2018-04-11] MEDS: FUROSEMIDE 20 MG TAB PO ×2 (06:50→17:18)
[2018-04-11] MEDS: LEVOTHYROXINE 25 MCG TAB PO (06:50)
[2018-04-11] MEDS: SPIRONOLACTONE 25 MG TAB PO (08:21)
[2018-04-11] MEDS: DABIGATRAN 150 MG CAP PO ×2 (08:21→20:12)
[2018-04-11] MEDS: ALLOPURINOL 300 MG TAB PO (08:21)
[2018-04-11] MEDS: POTASSIUM CHLORIDE (SR) 20 MEQ TAB PO (08:21)
[2018-04-11] MEDS: LISINOPRIL 5 MG TAB PO (08:30)
[2018-04-11] MEDS: DIGOXIN 0.25 MG TAB PO (13:33)
[2018-04-11] MEDS: ATORVASTATIN 80 MG TAB PO (20:12)
[2018-04-12] MEDS: FUROSEMIDE 20 MG TAB PO ×2 (06:24→18:41)
[2018-04-12] MEDS: LEVOTHYROXINE 25 MCG TAB PO (06:24)
[2018-04-12] MEDS: SPIRONOLACTONE 25 MG TAB PO (08:44)
[2018-04-12] MEDS: DABIGATRAN 150 MG CAP PO ×2 (08:44→21:09)
[2018-04-12] MEDS: LISINOPRIL 5 MG TAB PO (08:44)
[2018-04-12] MEDS: POTASSIUM CHLORIDE (SR) 20 MEQ TAB PO (08:44)
[2018-04-12] MEDS: ALLOPURINOL 300 MG TAB PO (08:46)
[2018-04-12] MEDS: DIGOXIN 0.25 MG TAB PO (12:48)
[2018-04-12] MEDS: ATORVASTATIN 80 MG TAB PO (21:09)
[2018-04-13] MEDS: FUROSEMIDE 20 MG TAB PO ×2 (06:31→17:34)
[2018-04-13] MEDS: LEVOTHYROXINE 25 MCG TAB PO (06:31)
[2018-04-13] MEDS: DABIGATRAN 150 MG CAP PO ×2 (09:20→20:53)
[2018-04-13] MEDS: POTASSIUM CHLORIDE (SR) 20 MEQ TAB PO (09:20)
[2018-04-13] MEDS: ALLOPURINOL 300 MG TAB PO (09:21)
[2018-04-13] MEDS: SPIRONOLACTONE 25 MG TAB PO (09:21)
[2018-04-13] MEDS: LISINOPRIL 5 MG TAB PO (09:24)
[2018-04-13] MEDS: DIGOXIN 0.25 MG TAB PO (13:00)
[2018-04-13] MEDS: ATORVASTATIN 80 MG TAB PO (20:53)
[2018-04-14] MEDS: FUROSEMIDE 20 MG TAB PO (06:00)
[2018-04-14] MEDS: LEVOTHYROXINE 25 MCG TAB PO (06:27)
[2018-04-14] MEDS: SPIRONOLACTONE 25 MG TAB PO (08:38)
[2018-04-14] MEDS: POTASSIUM CHLORIDE (SR) 20 MEQ TAB PO (08:38)
[2018-04-14] MEDS: ALLOPURINOL 300 MG TAB PO (08:38)
[2018-04-14] MEDS: LISINOPRIL 5 MG TAB PO (08:39)
[2018-04-14] MEDS: DABIGATRAN 150 MG CAP PO (08:39)
[2018-04-14] MEDS: DIGOXIN 0.25 MG TAB PO (13:00)
== END 2018-04-14 15:35 | disposition home health service (06) | DRG 56 ==
LOC: VRC 18:59
PROC: F07Z5ZZ Bed Mobility Treatment (ICD-10-PCS; principal; 2018-03-31)
PROC: F08Z2ZZ Grooming/Personal Hygiene Treatment (ICD-10-PCS; 2018-03-31)
PROC: F06Z6ZZ Communicative/Cognitive Integration Skills Treatment (ICD-10-PCS; 2018-03-31)
DX: I69.351 Hemiplegia and hemiparesis following cerebral infarction affecting right dominant side (principal); G93.41 Metabolic encephalopathy; N39.0 Urinary tract infection, site not specified; B96.20 Unspecified Escherichia coli [E. coli] as the cause of diseases classified elsewhere; E03.9 Hypothyroidism, unspecified; Z95.810 Presence of automatic (implantable) cardiac defibrillator; I11.0 Hypertensive heart disease with heart failure; I50.9 Heart failure, unspecified; I25.10 Atherosclerotic heart disease of native coronary artery without angina pectoris; I48.91 Unspecified atrial fibrillation; F06.31 Mood disorder due to known physiological condition with depressive features; F01.50 Vascular dementia, unspecified severity, without behavioral disturbance, psychotic disturbance, mood disturbance, and anxiety
CPT/HCPCS: 80053; 80162; 80200; 81001; 83735; 84439; 84443; 85025; 87045; 87075; 87081; 87086; 92507; 92523; 97110; 97112; 97116; 97163; 97167; 97530; 97535; 97542

== ENCOUNTER 2018-07-07 17:38 | Emergency (ER) | payer MEDICARE, OTHER ==
[2018-07-07 18:05] LABS: ADD MAN DIFF? NO
[2018-07-07 18:07] LABS: WHITE BLOOD COUNT 6.2 10^3/ul (4.8-10.8)
[2018-07-07 18:07] LABS: BASOPHILS % 0.5 % (0.0-2.0); EOSINOPHILS # 0.3 10^3/ul (0.0-0.5); EOSINOPHILS % 4.4 % (0.0-7.0); HEMOGLOBIN 12.7 g/dl (14.0-18.0); LYMPHOCYTES # 1.4 10^3/ul (0.8-2.9); MEAN CORPUSCULAR HGB CONC 33.4 g/dl (32.0-37.0); MEAN CORPUSCULAR VOLUME 95.7 fl (82.0-101.0); MEAN PLATELET VOLUME 11.2 fl (7.4-10.4); MONOCYTE # 0.6 10^3/ul (0.3-0.9); MONOCYTES % 10.2 % (0.0-11.0); NEUTROPHIL # 3.9 10^3/ul (1.6-7.5); NEUTROPHILS % 62.6 % (39.0-77.0); PLATELET COUNT 127 10^3/UL (140-415); POSITIVE DIFF @See below; RED BLOOD COUNT 3.97 10^6/ul (4.70-6.10)
[2018-07-07 18:28] LABS: ANION GAP 8 (5-13); BLOOD UREA NITROGEN 12 mg/dl (7-20); CALCIUM 9.4 mg/dl (8.4-10.2); CARBON DIOXIDE 27 mmol/L (21-31); CHLORIDE 104 mmol/L (97-110); CREATININE 0.81 mg/dl (0.61-1.24); GLUCOSE 101 mg/dl (70-220); POTASSIUM 4.5 mmol/L (3.5-5.1); SODIUM 139 mmol/L (135-144)
[2018-07-07 18:31] LABS: LACTIC ACID 1.1 mmol/L (0.5-2.0)
[2018-07-07 18:42] LABS: B-TYPE NATRIURETIC PEPTIDE 3490 PG/ML (0-450)
[2018-07-07] MEDS: ACETAMINOPHEN 500 MG TAB PO (19:21)
[2018-07-07] MEDS ORDERED: AZITHROMYCIN 500 MG TAB PO (20:00)
== END 2018-07-07 20:46 | disposition home or self-care (01) ==
LOC: E/R 17:38
DX: J18.1 Lobar pneumonia, unspecified organism (principal); I11.0 Hypertensive heart disease with heart failure; I50.9 Heart failure, unspecified; Z86.73 Personal history of transient ischemic attack (TIA), and cerebral infarction without residual deficits; Z87.891 Personal history of nicotine dependence; Z95.0 Presence of cardiac pacemaker
CPT/HCPCS: 36415; 71045; 80048; 83605; 83880; 84484; 85025; 93005; 99285-25